=== PATIENT | male | born 1990 | race Caucasian/White ===

== ENCOUNTER 2019-06-19 11:08 | Emergency (ER) | payer MEDICAID ==
[~2019-06-19] VITALS: Ht 170.2 cm; Wt 78.0 kg
[2019-06-19 12:22] LABS: BASOPHILS % 0.4 % (0.0-2.0); EOSINOPHILS % 0.9 % (0.0-5.0); HEMATOCRIT. 38.4 % (42.0-52.0); HEMOGLOBIN. 13.1 g/dL (14.0-18.0); LYMPHOCYTES % 36.2 % (20.0-50.0); MEAN CORPUSCULAR HEMOGLOBIN 30.2 pg (28.0-32.0); MEAN CORPUSCULAR VOLUME 88.6 fL (80.0-94.0); MEAN PLATELET VOLUME 6.9 fl (7.4-10.4); MONOCYTES % 7.8 % (2.0-8.0); NEUTROPHILS % 54.7 % (40.0-76.0); PLATELET 259 x1000/uL (130-400); RED BLOOD CELL COUNT 4.34 mill/uL (4.7-6.1); RED CELL DISTRIBUTION WIDTH 13.8 % (11.6-14.6)
[2019-06-19 12:28] LABS: CHLORIDE 109 mEq/L (98-107)
[2019-06-19 12:32] LABS: ETHANOL BLOOD < 10 mg/dL
[2019-06-19 13:42] VITALS: BP 110/70
== END 2019-06-19 14:02 | disposition home or self-care (01) ==
LOC: ER 11:08
DX: F10.129 Alcohol abuse with intoxication, unspecified (principal); Y90.9 Presence of alcohol in blood, level not specified
CPT/HCPCS: 36415; 80053; 80320; 85025; 99283; Z7610; G0480

== ENCOUNTER 2020-06-16 02:08 | Emergency (ER) | payer MEDICAID ==
[~2020-06-16] VITALS: Ht 170.2 cm; Wt 75.0 kg
[2020-06-16] MEDS ORDERED: KETOROLAC 60MG/2ML VIAL IM ONE (05:00)
[2020-06-16 05:14] VITALS: BP 125/84
== END 2020-06-16 05:16 | disposition home or self-care (01) ==
LOC: ER 02:08
DX: S60.512A Abrasion of left hand, initial encounter (principal); S60.511A Abrasion of right hand, initial encounter; S09.8XXA Other specified injuries of head, initial encounter; F10.129 Alcohol abuse with intoxication, unspecified; F32.9 Major depressive disorder, single episode, unspecified; G40.909 Epilepsy, unspecified, not intractable, without status epilepticus; Y00.XXXA Assault by blunt object, initial encounter; Y93.89 Activity, other specified; Y92.488 Other paved roadways as the place of occurrence of the external cause
CPT/HCPCS: 99284